=== PATIENT | female | born 1955 | race Caucasian/White ===

== ENCOUNTER 2018-03-17 07:14 | Emergency (ER) | payer OTHER ==
[~2018-03-17] VITALS: Ht 165.1 cm; Wt 113.4 kg
--- NOTE | 2018-03-17 07:48 | ED SYNCOPE COMPLAINT ---
History of Present Illness General Chief Complaint: Syncope and Near-Syncope Stated Complaint: SYNCOPAL EPISODE IN CAR PER DAUGHTER Source: patient, daughter Exam Limitations: poor historian Vital Signs & Intake/Output Vital Signs & Intake/Output Vital Signs Date Time Temp Pulse Resp B/P B/P Pulse O2 O2 Flow FiO2 Mean Ox Delivery Rate 03/17 0850 98.7 95 20 117/68 98 Room Air 03/17 0717 96.0 123 24 142/86 97 Room Air Room Air Allergies Coded Allergies: clindamycin (Intermediate, BLOODY STOOLS 03/17/18) Reconcile Medications Atorvastatin Calcium 40 MG TABLET 1 TAB PO DAILY CHOLESTEROL (Reported) Ergocalciferol (Vitamin D2) (Vitamin D2) 50,000 UNIT CAPSULE 1 CAP PO We VITAMIN SUPPORT (Reported) Esomeprazole Magnesium (NexIUM 24HR) 20 MG CAPSULE.DR 1 CAP PO DAILY GI ( Reported) Losartan Potassium 100 MG TABLET 1 TAB PO DAILY HEART (Reported) Triage Note: PT TO ED WITH C/O NEAR SYNCOPY IN THE CAR THIS MORNING, PER PT THIS HAS BEEN HAPPENING ON AND OFF FOR THE LAST WEEK OR SO "ON WEDNESDAY DIZZY AND ONE SIDE OF MY FACE FELT WEIRD AND I WAS SLURRING A COUPLE OF WORDS, LASTED JUST A FEW SECONDS". Triage Nurses Notes Reviewed? yes Timing: single episode today Precipitating Factors: none Context: became dizzy and sweaty while driving [employer] Loss of Consciousness: no loss of consciousness HPI: Patient presents for evaluation of a near syncopal episode that occurred prior to arrival while driving. Patient states she felt dizzy and her daughter observed that she appeared red and sweaty at the time. Patient states she has had similar episodes this week but hasn't sought medical care. Today's episode was similar to prior episodes. Patient states that she generally has an increased heart rate but otherwise denied any irregular heartbeat, chest pain, headache, visual changes during the episode. The patient responded to the episode but pulling over to the side of the road and symptoms passed spontaneously after about 2-3 minutes. Patient's daughter states she's had a history of a bowel resection with resulting low potassium and calcium level. She has managed this with diet alone. Patient admits to rare alcohol intake but denies cigarette smoking or drug use. Past History Travel History Traveled to [place] past 21 day No Medical History Any Pertinent Medical History? see below for history Neurological: NONE EENT: NONE Cardiovascular: hypertension, hyperlipidemia, HIGH HEART RATE Respiratory: bronchitis Gastrointestinal: diverticulitis Hepatic: NONE Renal: NONE Musculoskeletal: NONE Psychiatric: NONE Endocrine: NONE Blood Disorders: NONE Cancer(s): NONE WELDER OXYHYDROGEN/Reproductive: NONE Surgical History Surgical History: non-contributory Psychosocial History What is your primary language Guatemalan Tobacco Use: Never used ETOH Use: denies use Illicit Drug Use: denies illicit drug use Family History Hx Contributory? No Review of Systems Review of Systems Constitutional: Reports: no symptoms. EENTM: Reports: no symptoms. Respiratory: Reports: no symptoms. Cardiovascular: Reports: see HPI. GI: Reports: no symptoms. Genitourinary: Reports: no symptoms. Musculoskeletal: Reports: no symptoms. Skin: Reports: no symptoms. Neurological/Psychological: Reports: no symptoms. All Other Systems: Reviewed and Negative Physical Exam Physical Exam Cranial Nerves: see below Comments: Gen.: Well-nourished, well-developed, no acute respiratory distress. Head: Normocephalic, atraumatic. Eyes: Normal inspection bilaterally Ears: Normal inspection bilaterally Nose: Normal inspection Throat/mouth : Moist mucosa Neck: Supple, full range of motion, no goiter, no carotid bruits, equal carotid pulses Heart: Regular rate and rhythm, soft systolic murmur heard best at the right upper sternal border Lungs: Clear to auscultation bilaterally with normal air entry Chest: Nontender Back: Normal range of motion Abdomen: Soft, nontender, nondistended, normal bowel sounds Extremities: Normal range of motion grossly, equal radial pulses, no cyanosis clubbing or edema Neurologic: Cranial 2 through 12 intact, speech is clear, gait is stable Skin: warm and dry Psychiatric: Calm, cooperative, no apparent delusions or hallucinations Core Measures ACS in differential dx? No CVA/TIA Diagnosis: No Sepsis Present: No Sepsis Focused Exam Completed? No Progress Differential Diagnosis: aortic valve, seizure, TIA/CVA, vasodepressor syncope, DEHYDRATION Plan of Care: Orders Procedure Date/time Status TSH REFLEX 03/18 0600 Active Add-on Test (ER Only) 03/17 0832 Active MAGNESIUM 03/17 0754 Complete Saline Lock 03/17 0748 Active MISTAKE 03/17 0748 Active Telemetry/Shaker Tender 03/17 0748 Active TROPONIN LEVEL 03/17 0748 Complete COMPREHENSIVE METABOLIC PANEL 03/17 0748 Complete CBC WITHOUT DIFFERENTIAL 03/17 0748 Complete EKG 03/17 0725 Active Laboratory Tests 03/17/18 0754: Anion Gap 12, Estimated GFR > 60, BUN/Creatinine Ratio 18.9, Glucose 201 H, Calcium 9.1, Magnesium 1.5 L, Total Bilirubin 0.7, AST 33, ALT 47, Alkaline Phosphatase 108, Troponin I < 0.01, Total Protein 6.8, Albumin 4.1, Globulin 2.7 , Albumin/Globulin Ratio 1.5, CBC w Diff NO MAN DIFF REQ, RBC 4.16 L, MCV 87.8, MCH 30.5, MCHC 34.7, RDW 13.0, MPV 8.5, Gran % 51.5, Lymphocytes % 38.4, Monocytes % 7.3, Eosinophils % 2.3, Basophils % 0.5, Absolute Granulocytes 2.0, Absolute Lymphocytes 1.5, Absolute Monocytes 0.3, Absolute Eosinophils 0.1, Absolute Basophils 0 03/17/18 0751: Calcium Cancelled Diagnostic Imaging: Discussed w/RAD: Radiology Read. CXR Impression: no acute abnormality Comments: 03/17/2018 10:20:43 AM Ean appears comfortable and offers no specific complaint at this time. I have updated her on test results. She has an appointment with her primary care physician already booked for Wednesday. Departure Departure Disposition: HOME OR SELF CARE Condition: Stable Clinical Impression Primary Impression: Near syncope Referrals: Alexa Roach (PCP/Family) Additional Instructions: Maintain a consistent nutritional intake and avoid excessive caffeine. Stay well hydrated. Follow-up with your primary care physician as scheduled. Return if any concerns or sudden worsening. Thank you for choosing the [facility] for your care. It was a pleasure to serve you today. Michael Astudillo M.D. [facility] Departure Forms: Customer Survey General Discharge Information
[2018-03-17 08:12] LABS: ABSOLUTE BASOPHIL COUNT 0 /CUMM (0.0-0.2); ABSOLUTE EOSINOPHIL COUNT 0.1 /CUMM (0.0-0.7); ABSOLUTE LYMPH COUNT 1.5 /CUMM (1.2-3.4); ABSOLUTE MONOCYTE COUNT 0.3 /CUMM (0.10-0.60); BASOPHIL % 0.5 % (0.0-2.0); EOSINOPHIL % 2.3 % (0-5); GRANULOCYTE % 51.5 % (42.2-75.2); HEMATOCRIT 36.5 % (37-47); MEAN CORPUSCULAR HGB 30.5 PG (27.0-31.0); MEAN CORPUSCULAR HGB CONC 34.7 G/DL (33.0-37.0); MEAN CORPUSCULAR VOLUME 87.8 FL (81.0-99.0); MEAN PLATELET VOLUME 8.5 FL (7.4-10.4); PLATELET COUNT 174 /CUMM (130-400); RED BLOOD CELL CT 4.16 /CUMM (4.20-5.40); WHITE BLOOD CELL COUNT 3.9 /CUMM (4.8-10.8)
[2018-03-17] MEDS ORDERED: LOSARTAN POTAS100 M1 PO (08:21)
[2018-03-17] MEDS ORDERED: ATORVASTATIN CA40 M1 PO (08:21)
[2018-03-17] MEDS ORDERED: VITAMIN D250000 UNIT PO (08:22)
[2018-03-17] MEDS ORDERED: NEXIUM 24HR20 M2 PO (08:22)
--- NOTE | 2018-03-17 08:23 | RADIOLOGY REPORT ---
EXAMINATION: XR CHEST CLINICAL INFORMATION: Near syncope COMPARISON: None TECHNIQUE: 2 views of the chest were obtained. FINDINGS: Evaluation is limited due to patient's body habitus. Cardiomediastinal silhouette is within normal limits. Visualized lungs are clear. Bony thorax is intact. Postoperative changes lower cervical spine. IMPRESSION: No acute pulmonary disease.
[2018-03-17 10:15] VITALS: BP 120/70
== END 2018-03-17 10:27 ==
LOC: ERH 07:14
PROVIDERS: Emergency Medicine
DX: R55 Syncope and collapse (principal)
CPT/HCPCS: 71046; 93005; 93010